=== PATIENT | male | born 1960 | race Caucasian/White ===

== ENCOUNTER 2017-02-02 23:46 | Inpatient (IN) | payer MEDICARE ==
[~2017-02-02] VITALS: Ht 180.3 cm; Wt 97.1 kg
[2017-02-03 00:29] LABS: HEMOGLOBIN 12.6 gm/dl (14.0-17.5); RED BLOOD COUNT 4.25 M/UL (4.20-5.50); WHITE BLOOD COUNT 12.4 K/UL (4.5-11.0)
[2017-02-03 00:48] LABS: BUN/CREATININE RATIO 15 (0-10)
[2017-02-03] MEDS ORDERED: LISINOPRIL20 MG PO (16:22)
[2017-02-03] MEDS ORDERED: HYDROCHLOROTHIA25 MG PO (16:23)
[2017-02-03] MEDS ORDERED: VENTOLIN/PROVE0.5 ML INH ×4 (16:23→16:31)
[2017-02-04 04:25] LABS: RED BLOOD COUNT 4.4 M/UL (4.20-5.50); WHITE BLOOD COUNT 11.9 K/UL (4.5-11.0)
[2017-02-04 04:46] LABS: BUN/CREATININE RATIO 14 (0-10)
[2017-02-05 03:58] LABS: BUN/CREATININE RATIO 13 (0-10)
[2017-02-06 03:11] LABS: HEMOGLOBIN 12.7 gm/dl (14.0-17.5); RED BLOOD COUNT 4.31 M/UL (4.20-5.50)
[2017-02-06 03:12] LABS: WHITE BLOOD COUNT 8.9 K/UL (4.5-11.0)
[2017-02-06 03:32] LABS: BUN/CREATININE RATIO 20 (0-10)
[2017-02-07 03:45] LABS: BUN/CREATININE RATIO 16 (0-10)
[2017-02-07] MEDS ORDERED: ASPIRIN EC81 MG PO (12:23)
[2017-02-07] MEDS ORDERED: LIPITOR TAB 2020 MG PO (12:23)
[2017-02-07] MEDS ORDERED: LASIX40 MG PO (12:24)
[2017-02-07] MEDS ORDERED: METOPROLOL SUCC25 MG PO (12:27)
[2017-02-07] MEDS ORDERED: ALDACTONE 25MG25 MG PO (12:35)
[2017-02-07] MEDS ORDERED: PULMICORT0.5 MG/2 M INH (12:36)
[2017-02-07] MEDS ORDERED: IPRAT-ALBUT 0.5-3 ML INH (12:38)
== END 2017-02-07 12:15 | disposition home or self-care (01) | DRG 291 ==
LOC: ER1 23:46 → PROG CARE 02-03 09:00 → ZEROF 02-03 09:00 → PROG CARE 02-03 16:08
PROVIDERS: Emergency Medicine; ADMIT Internal Medicine
DX: I11.0 Hypertensive heart disease with heart failure (principal); J96.01 Acute respiratory failure with hypoxia; I50.23 Acute on chronic systolic (congestive) heart failure; J44.9 Chronic obstructive pulmonary disease, unspecified; Z87.01 Personal history of pneumonia (recurrent); F17.200 Nicotine dependence, unspecified, uncomplicated; I42.9 Cardiomyopathy, unspecified; E66.9 Obesity, unspecified; Z68.31 Body mass index [BMI] 31.0-31.9, adult; D64.9 Anemia, unspecified
CPT/HCPCS: ECHO; 36415; 71010; 71020; 78452; 80053; 80061; 80307; 81001; 82550; 82553; 82607; 82728; 82746; 82962; 83540; 83550; 83605; 83735; 83874; 83880; 84100; 84439; 84443; 84484; 85025; 85027; 87040; 93005; 93017; 93306; 93970; 94640; 94664; 96374; 99285; A9502; J1940; J2785